=== PATIENT | male | born 1980 | race Caucasian/White ===

== ENCOUNTER 2024-04-23 14:14 | Emergency (ER) | payer SELFPAY ==
[2024-04-23 14:14] VITALS: BP 125/72; PULSE 63; RESP 15; TEMP 36.2; O2SAT 95; BMI 34.1
--- NOTE | 2024-04-23 14:31 | RAD_ITS ---
STUDY: X-RAY CHEST REASON FOR EXAM: Male, 43 years old. Cough and wheezing TECHNIQUE: PA and lateral views of the chest. COMPARISON: None. FINDINGS: The lungs are clear and expanded. There is no demonstrated pleural abnormality. Normal size heart. Normal mediastinum and loulou. Normal visualized pulmonary arteries. Normal visualized aortic arch and descending thoracic aorta. Normal visualized thoracic spine. Normal visualized ribs, clavicles, and shoulders. There is no demonstrated abnormality of the visualized soft tissue structures of the upper abdomen. RAD/Chest PA and Lateral IMPRESSION: Normal x-ray examination of the chest. Electronically Signed: Fletcher Jarvis MD at 15:05 EDT ,
--- NOTE | 2024-04-23 14:34 | EX.ED.VIS.UR ---
HPI HPI - URI History of Present Illness Chief Complaint: Cold Sx Informant: patient Onset/Context/Timing Onset: Days Context: Gradual Onset Timing: Continuous Current Severity: Mild Maximum Severity: Mild Associated Symptoms Associated Symptoms: Positive for Nasal Congestion, Myalgias, Shortness of Breath (Wheezing.) and Nonproductive cough Narrative Narrative: 44-year-old male no seen past medical or surgical history. Had asthma as a kid but has not had it for years. Says for 3 days has had a nonproductive cough. Denies fever had some chills today. No hemoptysis. He feels mildly short of breath with wheezing. He also is lost his hearing. Denies sore throat. Denies vomiting or diarrhea. Denies any obvious exposure. Prior similar symptoms: Yes Recent Illness/Hospitalization: No ROS ROS ED ROS Narrative Cough. Wheezing. Shortness of breath. Loss of hearing bilaterally. Constitutional Constitutional ED: Reports chills; Denies fever(s) Eyes Eyes: Denies blurry vision ENT ENT ED: Denies ear pain, rhinorrhea or sore throat Cardiovascular Cardiovascular: Denies chest pain Respiratory/Chest Respiratory/Chest: Reports cough and dyspnea; Denies sputum Gastrointestinal Gastrointestinal: Denies abdominal pain, diarrhea, nausea or vomiting Genitourinary Genitourinary ED: Denies dysuria or hematuria Musculoskeletal Musculoskeletal: Denies arthralgias Integumentary Denies abscess Neurologic Neurologic: Denies headache(s) Psychiatric Psychiatric: Denies anxiety Endocrine Endocrinology: Denies cold intolerance Hematologic/Lymphatic Hematologic/Lymphatic: Denies easy bleeding or easy bruising Allergic/Immunologic Allergic/Immunologic ED: Denies mouth swelling, tongue swelling or urticaria PFSH PFSH Medical History no medical history no medical history Home Medications ?Medication ?Instructions ?Recorded ?Last Taken ?Type albuterol sulfate 90 mcg/actuation 2 inh inhalation Q4H PRN shortness 04/23/24 Unknown Rx aerosol inhaler (Proventil HFA) of breath or wheezing #6.7 grams prednisone 20 mg tablet 40 mg (2 x 20 mg) PO DAILY 7 days 04/23/24 Unknown Rx #14 tabs Allergy/AdvReac Type Severity Reaction Status Date / Time No Known Allergies Allergy Verified 04/23/24 14:16 Family History no significant family his Surgical History no surgical history Social History Smoking Status: Current every day smoker tobacco type: cigarettes EXAM Physical Exam Narrative Exam Narrative: 43-year-old male vital signs stable afebrile. Pulse ox 95% room air no hypoxia. No distress. H EENT exam posterior pharynx normal. Moist mucous membranes. Pupils round react to light. TMs both ear canals completely full with wax. Neck nontender no lymphadenopathy. Lungs: Expiratory phase. Bilateral expiratory wheezing. No rales or rhonchi. Equal symmetrical. Heart regular rhythm rate about 60 no murmur. Chest wall ribs nontender. Abdomen soft nontender. Back nontender. Moving all 4 extremities. Nontender no edema. Neurologically is awake alert no focal motor deficits. Const Vital Signs: 04/23/24 14:14 04/23/24 14:19 04/23/24 14:45 Temperature 97.2 F L Temperature Source Temporal Pulse Rate 63 67 Respiratory Rate 15 16 Respiratory Effort Normal Non-Labored Respiratory Pattern Normal Normal Blood Pressure 125/72 H Blood Pressure Mean 89 Pulse Ox 95 Oxygen Delivery Method Room Air Positive well nourished and well developed; Negative for obese, cachectic or contractures General Appearance ED: well developed and NAD; Negative for cachectic, contractures, cyanotic, diaphoretic or pallor Nutritional Appearance: Negative for cachectic or obese HEENT Reports moist mucous membranes; Denies dry mucous membranes normocephalic and atraumatic Face and Sinus: Negative for sinus tenderness, maxillary instability or facial tenderness Mouth ED: No dry mucous membranes Mouth: No dry mucous membranes Throat: posterior oropharynx normal Eyes PERRL and EOMs intact bilaterally General Eye ED: Negative for pale conjunctiva or scleral icterus Neck no lymphadenopathy, supple, no meningeal signs and no JVD General: Negative for anterior neck swelling or lymphadenopathy Resp normal respiratory effort and No clear to auscultation bilaterally Auscultation: wheezes Cardio S1 normal heart sound, S2 normal heart sound and no murmurs Rate: regular rate Rhythm: regular rhythm GI non-tender, non-distended and no masses Inspection: Negative for abdominal distention Auscultation: normoactive bowel sounds Palpation: soft; Negative for tender or guarding Back/Spine no CVA tenderness and normal ROM General Back: Negative for CVA tenderness Cervical Spine: Negative for cervical spine tenderness Thoracic Spine / Upper Back: Negative for thoracic spinal tenderness Lumbar Spine / Lower Back: Negative for lumbar spinal tenderness Extremity normal to inspection and full ROM General Extremety ED: Negative for cyanosis or tenderness General Extremity: Negative for cyanosis Neuro oriented x3 and CN's II-XII intact bilaterally Sensorium / Orientation: alert, oriented to person, oriented to place and oriented to time; Negative for orientation impaired, lethargic or stuporous Motor Exam: strength 5/5 throughout Psych mental status grossly normal Attitude: No agitated Mood & Affect: Negative for depressed, anxious or tearful Skin General Skin Exam: Negative for jaundice or pallor Lesions: no lesions Rashes: no rashes Trauma: Negative for abrasion or laceration MDM MDM MDM Narrative Medical decision making narrative: 43-year-old male with URI symptoms with wheezing. Chest x-ray to rule out pneumonia. COVID and flu test. Treated with oral prednisone 60 mg. DuoNeb aerosol. Both ears are completely full wax Debrox to be applied on both be irrigated. Repeat exam at 3:15 PM patient doing better. Wheezing currently resolved of the aerosol and his oral steroid. We discussed his negative chest x-ray. Awaiting his COVID test. Doing well at 3:52 PM will be discharged home. Steroids and inhaler. Stop smoking. Treat as a viral URI. Nurses did irrigate his ears after placing Debrox to get some of the wax out. Help to keep using the Debrox at home. Or follow-up with ENT. History & Record Review Discussion w/independent historian: Patient Additional record(s) reviewed:: No prior records Lab Data Attestation: I reviewed the patient's lab results. Lab results narrative: COVID, flu and RSV negative. Radiography Chest X-Ray - ED: 2 View, Read by ED Physician, Read by Radiologist, Heart, Lungs, Mediastinum, Bony Structures, No Acute Disease and Chronic Changes Diagnostic Testing: Clinical Impression(s) from Imaging Studies Chest X-Ray 04/23/24 14:31 IMPRESSION: Normal x-ray examination of the chest. Electronically Signed: Fletcher Jarvis MD at 15:05 EDT , Chest x-ray, 2 views, AP and lateral, interpreted by myself and the radiologist shows no acute abnormality. Normal cardiac silhouette. Normal lung martinez. Chronic changes. No pneumonia. Discharge Plan Triage Chief Complaint: Cold Sx ED Provider: Tony Lowe Dx/Rx/DC Orders Clinical Impression: Viral URI, Bilateral wheezing, Bilateral hearing loss due to cerumen impaction Instructions: Impacted Earwax, ED URI, Viral W/ Wheezing (Adult) Prescriptions: New prednisone 20 mg tablet 40 mg PO DAILY 7 Days Qty: 14 0RF albuterol sulfate [Proventil HFA] 90 mcg/actuation HFA aerosol inhaler 2 inh inhalation Q4H PRN (Reason: shortness of breath or wheezing) Qty: 6.7 0RF Activity Restrictions/Additional Instructions: You have a viral respiratory infection. You do not need antibiotics. Prednisone daily will help with the inflammation and decrease the wheezing and help your breathing. Inhaler 2 puffs every 2-4 hours as needed for wheezing or shortness of breath. Long-term absolutely stop smoking. Print Language: Kinyarwanda Disposition Disposition: Home, Self Care
[2024-04-23] MEDS: Ipratropium/Albuterol Sulfate 3 ML AMPUL.NEB INHALATION (14:39)
[2024-04-23] MEDS: predniSONE 20 MG Tablet 60 MG PO (14:41)
[2024-04-23 14:45] VITALS: PULSE 67; RESP 16
[2024-04-23] MEDS: Carbamide Peroxide 15 ML Bottle 5 DRP OTIC (14:48)
[2024-04-23 15:57] VITALS: BP 140/70; PULSE 68; RESP 18; TEMP 36.6; O2SAT 99
== END 2024-04-23 15:59 | disposition home or self-care (01) ==
LOC: ED 15:51
PROVIDERS: Emergency Provider Emergency Medicine; Visit Provider Emergency Medicine
DX: J06.9 Acute upper respiratory infection, unspecified (principal); M79.10 Myalgia, unspecified site; F17.210 Nicotine dependence, cigarettes, uncomplicated; R06.02 Shortness of breath; H61.20 Impacted cerumen, unspecified ear; Z82.5 Family history of asthma and other chronic lower respiratory diseases; H91.93 Unspecified hearing loss, bilateral
CPT/HCPCS: 71046; 87631; 94640; 99284